=== PATIENT | female | born 1965 | race Caucasian/White ===

== ENCOUNTER → 2024-01-11 | Outpatient (CLI) | payer OTHER, SELFPAY ==
--- NOTE | 2024-01-07 08:52 | RAD_ITS ---
STUDY: X-RAY - ABDOMEN/PELVIS REASON FOR EXAM: Female, 58 years old. 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 COMPARISON: None. FINDINGS: Moderate amount of fecal material is seen within the colon. Further bowel prep is needed. RAD/Abdomen Single View IMPRESSION: Moderate amount of fecal material is seen within the colon. Further bowel prep needed. Electronically Signed: Nikhil Enciso MD at 8:09 EDT ,
--- NOTE | 2024-01-11 08:10 | RAD_ITS ---
STUDY: BARIUM ENEMA. REASON FOR EXAM: Female, 58 years old. REDUNDANT COLON. Cologuard positive FLUOROSCOPY TIME (if supplied): ( 1 minute ) minutes/seconds. 24.26 mGy. 13 images were submitted. TECHNIQUE: Barium was introduced retrograde through the colon. The entire colon was opacified. COMPARISON: None. FINDINGS: There is redundancy of the sigmoid colon. There is evidence of diverticulosis throughout the entire colon more prominent in the left hemicolon. No intraluminal filling defect or mass lesion is seen. RAD/Barium Enema No Air Cont IMPRESSION: Extensive diverticulosis. Electronically Signed: Nikhil Enciso MD at 11:17 EDT ,
== END | disposition home or self-care (01) ==
PROVIDERS: PCP Internal Medicine; Referring Provider Internal Medicine Gastroenterology; Visit Provider Internal Medicine Gastroenterology
DX: Q43.8 Other specified congenital malformations of intestine (principal)
CPT/HCPCS: 74018; 74270